=== PATIENT | male | born 1995 | race African-American/Black ===

== ENCOUNTER 2022-03-13 13:53 | Emergency (ER) | payer MEDICAID ==
[~2022-03-13] VITALS: Ht 175.3 cm; Wt 60.6 kg
[2022-03-13 14:31] VITALS: BP 117/60
[2022-03-13] MEDS ORDERED: rabies immune globulin/PF 150 unit/ml inj IMVAC STA (16:12)
[2022-03-13] MEDS ORDERED: rabies vaccine (PCEC)/PF 2.5 unit kit IMVAC ONE (16:15)
--- NOTE | 2022-03-13 16:50 | NUR ---
wound irr with 250cc sterile water
[2022-03-13] MEDS ORDERED: AMOX-117 PO (17:27)
[2022-03-13] MEDS ORDERED: BACI1PAC7 TOP (17:32)
[2022-03-13] MEDS ORDERED: bacitracin 15gm ointment TP ONE (17:35)
--- NOTE | 2022-03-13 18:47 | NUR ---
dressing applied to dogbite.
--- NOTE | 2022-03-13 18:47 | NUR ---
im x2 given
== END 2022-03-13 18:48 | disposition home or self-care (01) ==
LOC: ER 13:54
DX: S81.851A Open bite, right lower leg, initial encounter (principal); Z20.3 Contact with and (suspected) exposure to rabies; W54.0XXA Bitten by dog, initial encounter; Y93.89 Activity, other specified; Y92.89 Other specified places as the place of occurrence of the external cause; Y99.8 Other external cause status
CPT/HCPCS: 12001; 90376; 90471; 90472; 90675; 99284; A6449

== ENCOUNTER 2022-03-16 07:46 | Emergency (ER) | payer MEDICAID ==
[~2022-03-16] VITALS: Ht 175.3 cm; Wt 63.6 kg
[~2022-03-16 07:46] MED LIST: AMOX-117 PO; BACI1PAC7 TOP
[2022-03-16 07:54] VITALS: BP 109/60
[2022-03-16] MEDS ORDERED: rabies vaccine (PCEC)/PF 2.5 unit kit IMVAC ONE (08:15)
== END 2022-03-16 08:27 | disposition home or self-care (01) ==
LOC: ER 07:47
DX: S81.831D Puncture wound without foreign body, right lower leg, subsequent encounter (principal); Z23 Encounter for immunization; F12.90 Cannabis use, unspecified, uncomplicated; Z79.899 Other long term (current) drug therapy; W54.0XXD Bitten by dog, subsequent encounter
CPT/HCPCS: 90471; 90675; 99281

== ENCOUNTER 2022-03-20 09:32 | Emergency (ER) | payer MEDICAID ==
[~2022-03-20] VITALS: Ht 175.3 cm; Wt 61.0 kg
[~2022-03-20 09:32] MED LIST changes: -AMOX-117 PO
[2022-03-20 09:53] VITALS: BP 104/63
[2022-03-20] MEDS ORDERED: rabies vaccine (PCEC)/PF 2.5 unit kit IMVAC ONE (09:55)
== END 2022-03-20 11:32 | disposition home or self-care (01) ==
LOC: ER 09:32
DX: S81.831D Puncture wound without foreign body, right lower leg, subsequent encounter (principal); F12.90 Cannabis use, unspecified, uncomplicated; Z79.2 Long term (current) use of antibiotics; W54.0XXD Bitten by dog, subsequent encounter
CPT/HCPCS: 90471; 90675; 99281

== ENCOUNTER 2022-03-23 12:46 | Emergency (ER) | payer MEDICAID ==
[~2022-03-23] VITALS: Ht 175.3 cm; Wt 63.6 kg
[2022-03-23 12:55] VITALS: BP 111/66
== END 2022-03-23 14:11 | disposition home or self-care (01) ==
LOC: ER 12:46
DX: M79.604 Pain in right leg (principal); S81.831D Puncture wound without foreign body, right lower leg, subsequent encounter; F12.90 Cannabis use, unspecified, uncomplicated; Z79.899 Other long term (current) drug therapy; Z48.00 Encounter for change or removal of nonsurgical wound dressing; Z79.2 Long term (current) use of antibiotics; W54.0XXD Bitten by dog, subsequent encounter
CPT/HCPCS: 99281

== ENCOUNTER 2022-03-27 06:56 | Emergency (ER) | payer MEDICAID ==
[~2022-03-27] VITALS: Ht 175.3 cm; Wt 59.0 kg
[2022-03-27 06:58] VITALS: BP 112/65
[2022-03-27] MEDS ORDERED: TETanus/Pertussis (Acell)/Diphther VAC/PF (Tdap-Adult) 0.5ml syringe IMVAC ONE (07:15)
[2022-03-27] MEDS ORDERED: rabies vaccine (PCEC)/PF 2.5 unit kit IMVAC ONE (07:15)
== END 2022-03-27 07:36 | disposition home or self-care (01) ==
LOC: ER 06:57
DX: S81.851D Open bite, right lower leg, subsequent encounter (principal); F12.10 Cannabis abuse, uncomplicated; Z79.899 Other long term (current) drug therapy; Z20.3 Contact with and (suspected) exposure to rabies; W54.0XXD Bitten by dog, subsequent encounter
CPT/HCPCS: 90471; 90472; 90675; 90715; 99283